=== PATIENT | female | born 1935 | race African-American/Black ===

== ENCOUNTER 2016-06-15 14:37 | Inpatient (IN) | payer MEDICARE, OTHER ==
--- NOTE | ~2016-06-15 | CN ---
Consultation Report [facility] [address] [place]. [address] NAME: MICHAEL SHANKAR : 35 STATUS : ADM IN PAT#: [id number] AGE: 80 ADM/REG DATE : 06/16/16 MR#: [id number] REPORT SERV DATE: 06/16/16 DICTATED BY: DATE: REPORT STATUS : Draft TRANSCRIBED BY: MODL DATE: 06/16/16 NEUROLOGY CONSULTATION DATE OF CONSULTATION: 06/16/2016 REASON FOR CONSULT: Hallucination, possible dementia. HISTORY OF PRESENT ILLNESS: This is an 80-year-old female who presented to [facility] on 06/15/2016, secondary to apparently a fairly chronic history of memory difficulties with the patient as being progressively forgetful, repetition of language as well as losing items. The patient's car briceno has been taken away from her secondary to patient gets lost while driving. In addition, patient is also unable to keep up with bills, has difficulties to remember taking medication. Patient's son has taken over management of her financial state as well as medication for her. The patient's symptom has been progressive and appeared to be long-standing. The patient in addition was also noted to have some hallucination as well as delusional thought with the patient accusing her son of taking her money. The patient is unable to really cook herself, but is able to dress herself and is able to ambulate. REVIEW OF SYSTEMS: Otherwise, negative with the patient currently denies any focal deficits and denies any dysarthria, diplopia. Denies any focal weakness or numbness prior to the hospitalization. MEDICATIONS: The patient recently received B12 shots, but otherwise, was not started on any dementia medications. ALLERGIES: THE PATIENT WAS NOTED TO HAVE NO KNOWN DRUG ALLERGIES. PAST MEDICAL HISTORY: The patient's past medical history is significant for hypertension, rheumatoid arthritis, for which the patient is on methotrexate as well as a low-dose prednisone. The patient also has had a recent diagnosis of DVT five to six months ago, currently on Eliquis. SOCIAL HISTORY: No current tobacco, alcohol, or recreational drug usage. FAMILY HISTORY: Significant for stroke, cataracts, and cancer. HOME MEDICATIONS: Consist of Eliquis, Refresh, Coreg, [place], Cozaar, methotrexate, prednisone, Accupril, and simvastatin. PHYSICAL EXAMINATION: VITAL SIGNS: At the time of evaluation, patient was noted to have overnight vital signs with a T-max of 99.0, heart rate of 55-95, respiration of 16-18, and blood pressure of 145- 177/81-94. Consultation Report [facility] [id number] [place]. [address] NAME: MICHAEL SHANKAR : 35 STATUS : ADM IN PAT#: [id number] AGE: 80 ADM/REG DATE : 06/16/16 MR#: [id number] REPORT SERV DATE: 06/16/16 DICTATED BY: DATE: REPORT STATUS : Draft TRANSCRIBED BY: MODL DATE: 06/16/16 GENERAL: The patient is well developed, well nourished, in no acute distress. CARDIOVASCULAR: Regular rate and rhythm. No carotid bruits were otherwise auscultated. PULMONARY: Clear to auscultation bilaterally. NEUROLOGICAL: Generally, patient is alert and oriented to person, place, month, but not to year. Mild psychomotor retardation was noted, but otherwise no aphasia. No dysarthria was noted at the time of evaluation. The patient is able to register 3/3 items, but is able to recall 0/3 items. The patient has some difficulties recalling given the task of remembering 3 items. At the time of evaluation, patient is able to follow simple and two-step commands, also having difficulty keeping track of complex commands at the time of evaluation. Decreased attention span at the time of evaluation. Cranial nerves II through XII, pupils equal, round, and reactive to light. Extraocular eye movement was noted to be intact with intact blink to threat response. Symmetrical facial expression and sensation. Midline tongue. Normal palatal movement. Mild decreased hearing. At the time of evaluation, the patient demonstrated 5/5 bilateral upper and lower extremity strength. Mild muscle atrophy. No significant tremor was otherwise noted at the time of evaluation. Normal [id number] examination without ataxia. Reports symmetric sensation bilaterally. Deep tendon reflexes 2+ throughout. Downgoing toes and bilateral plantar reflexes. The patient does demonstrate some mild unsteadiness with ambulation as well as posture instability at the time of evaluation. LABORATORY STUDY: Demonstrated white blood cell count of 9.9, hemoglobin of 15.2, hematocrit of 45.3, and platelet count of 186. Chemistry panel: Sodium 143, potassium 3.9, chloride 108, bicarb is 30, BUN of 32, creatinine of 0.95. Glucose of 76, calcium of 10.2. Serum cholesterol 247, HDL of 78, LDL of 148 and triglyceride of 106. Urine drug screen otherwise demonstrated positive opiates and urinalysis demonstrated trace leukocyte esterase, negative nitrites. CT scan of her brain was reviewed. Left subcortical hypoattenuation was seen, concern for possible subacute versus chronic stroke. Hemoglobin A1c is currently pending. IMPRESSION: Possible dementia with the symptom appeared to be chronic and progressive. The patient was noted to have memory difficulties as well as reports of getting lost, resulting in not being able to drive. The patient in addition was also noted to have baseline hallucination as well as delusional thoughts. Concern for possible dementia, Lewy-body dementia versus Alzheimer dementia; however, given patient's history of rheumatoid arthritis, as well as history of immunomodulating therapy, we will also consider possible lumbar puncture. Meanwhile, we will obtain MRI of the brain without contrast for evaluation, EEG, and laboratory study. We will start the patient on trial of Aricept 5 mg p.o. at bedtime. Pending patient's clinical response, may also consider possible low-dose Seroquel. RECOMMENDATIONS: 1. MRI of the brain without contrast. 2. EEG. 3. Ammonia, vitamin B12, folate, thiamine, RPR, HIV, TSH free T4, procalcitonin level. Consultation Report [address] [address] NAME: MICHAEL SHANKAR : 35 STATUS : ADM IN [facility]#: [id number] AGE: 80 ADM/REG DATE : 06/16/16 MR#: [id number] REPORT SERV DATE: 06/16/16 DICTATED BY: DATE: REPORT STATUS : Draft TRANSCRIBED BY: MODL DATE: 06/16/16 4. May consider lumbar puncture. 5. Aricept 5 mg p.o. at bedtime. 6. May consider Seroquel pending clinical response which is Aricept. [facility]/MODL Eris Pennington MD / [id number] CC: Manpreet Buenrostro Jr, MD Lawrence Swan, M.D.
--- NOTE | ~2016-06-15 | EEG ---
Electroencephalogram [facility] [address] [place]. [address] NAME: MICHAEL SHANKAR : 35 STATUS : ADM IN PAT#: [id number] AGE: 80 ADM/REG DATE : 06/16/16 MR#: [id number] REPORT SERV DATE: 06/16/16 DICTATED BY: DATE: REPORT STATUS : Draft TRANSCRIBED BY: MODL DATE: 06/16/16 NEUROLOGY EEG REPORT CLINICAL INDICATIONS: Encephalopathy, confusion, dementia. DESCRIPTION: This EEG was performed using 10/20 electrode placement system. During the EEG study, symmetric background activity was noted with predominant occipital rhythm of roughly 9 hertz. Photic stimulation was performed with a driving response. Hyperventilation was not performed secondary to the patient's underlying medical conditions. During the EEG study, the patient achieved drowsy state as well as a stage I and II sleep with appropriate sleep spindles. No focal abnormalities, seizure activity, or seizure discharge was otherwise noted. No electrographic seizure was observed. INTERPRETATION: This EEG study obtained during awake, drowsy as well as stage I and II sleep may be considered within normal limits. No focal abnormalities, seizure activity with seizure discharge were otherwise noted. Clinical correlation is recommended. [facility]/MODL Eris Pennington MD / [id number] CC: Manpreet Buenrostro Jr, MD Lawrence Swan, M.D.
--- NOTE | ~2016-06-15 | HP ---
History And Physical [facility] [id number] [place]. [address] NAME: MICHAEL SHANKAR : 35 STATUS : ADM Esdras PAT#: [id number] AGE: 80 ADM/REG DATE : 06/15/16 MR#: [id number] REPORT SERV DATE: 06/15/16 DICTATED BY: ALESIA LUNDBERG DATE: 06/15/16 REPORT STATUS : Draft TRANSCRIBED BY: MODL DATE: 06/15/16 DATE OF ADMISSION: 06/15/2016 IDENTIFYING DATA: An 80-year-old female, whose PCP is Dr. Yossi Bishop; dining car server, Dr. Hatch; senior engineering team leader, Dr. Tay. CHIEF COMPLAINT: Hallucinations and swollen feet. HISTORY OF PRESENT ILLNESS: This history of present illness is obtained by talking to the patient and her son, Emanuel, at the bedside as well as with the ER provider and reviewing [employer] and [employer]. The patient's son provides most of the history. The patient is pleasant, but has very poor memory for recent and even remote events. The patient has had leg edema, but the son states he used that as somewhat of a reason to convince his mom to come to the hospital. He describes more than six months of progressive forgetfulness, repetition of comments, and losing items. He finally took her car keys away because she would get lost. He had to take over doing the bills because she can no longer keep up with them. He had to take over administration of her medicines because she would either miss them or take more than she should. It has been steadily getting worse. She lives alone. She is no longer able to really cook for herself. She can dress and bathe herself and goes to and from the bathroom. She started calling her son by her 's name. She accuses the son of taking money. She calls him on the phone and tells him that there are people outside cutting the wires to her house, but he has seen no sign of this. She talks about seeing her purse being out on the porch, but the son does not find it there. He has gone to the PCP as of Monday of this week, they gave her some B12 shots and nothing else particularly. The son mentions that the PCP has discussed dementia, but no therapy has been initiated and we do not know the extent of the outpatient workup. REVIEW OF SYSTEMS: On review of systems, she has some low back pain. She has some urinary incontinence. She has lost about 15 pounds in the last three months. She and son deny any recent fever, sore throat, cough, nasal congestion, chest pain, shortness of breath, abdominal pain, nausea, vomiting, diarrhea, rectal bleeding, melena, dysuria, urinary hesitancy, tick bites, or headaches. ALLERGIES: NO KNOWN DRUG ALLERGIES. PAST MEDICAL HISTORY: No history of diabetes, asthma, COPD, myocardial infarction, stroke, seizure, peptic ulcer or biliary tract disease, liver disease, kidney disease, thyroid disease, or cancer. The ER note mentions something about congestive heart failure, but the son says he has never History And Physical [address] [place]. [address] NAME: MICHAEL SHANKAR : 35 STATUS : ADM Esdras PAT#: [id number] AGE: 80 ADM/REG DATE : 06/15/16 MR#: [id number] REPORT SERV DATE: 06/15/16 DICTATED BY: ALESIA LUNDBERG DATE: 06/15/16 REPORT STATUS : Draft TRANSCRIBED BY: BELL DATE: 06/15/16 heard that. She has hypertension. She has rheumatoid arthritis. She had a DVT in one of her legs, he is not sure which one. It was diagnosed at [facility] about five or six months ago. It was not around the time of any surgery or trauma, and as far as the son knows, no particular triggering cause was found. HOME MEDICATIONS: Eliquis 2.5 mg b.i.d.; Refresh one drop both eyes twice a day; Coreg 25 mg b.i.d.; [place] 5/325 t.i.d. p.r.n. pain; Cozaar 100 mg every morning; methotrexate 15 mg once a week, but there is some note about holding it pending labs; prednisone 5 mg every morning; Accupril 20 mg b.i.d.; and Zocor 20 mg daily. PAST SURGICAL HISTORY: Son recalls a bilateral total knee arthroplasty and cataract surgery on at least one eye and possible hysterectomy. The patient has no real recall except she thinks she may have had the hysterectomy. SOCIAL HISTORY: No tobacco or alcohol intake history. She walks with a cane. She lives alone. Son checks on her as often as he can. He administers her medicines, try to help provide her meals. FAMILY HISTORY: Mother reportedly had a possible stroke and cataracts. Her father was killed very young. One sister had cancer, possibly a breast cancer. DIAGNOSTIC DATA: PA and lateral chest x-ray reveals some atelectasis in the left lung base, clear otherwise per my interpretation. CT scan of the brain without contrast read by Radiology tonight as showing chronic or less likely subacute infarct, left frontal periventricular white matter into the lentiform nucleus, some mild diffuse cortical atrophy, mild deep chronic white matter changes. No other abnormalities noted. Sodium 143, potassium 3.9, chloride 108, CO2 is 30, BUN 32, creatinine 0.95, glucose 76, and calcium 10.2. Liver enzymes, otherwise, normal. Troponin less than 0.02. Acetaminophen less than 2. Salicylate 1.7. Blood alcohol level less than 10. B-natriuretic peptide 161.8. White count 10.4, hemoglobin 16.4, and platelets 200,000. Pro-time is 14.9, INR 1.2, and PTT is 24.1. Urinalysis: Hazy, trace leukocyte esterase, 26 red cells, 6 white blood cells, and occasional bacteria. PHYSICAL EXAMINATION: VITAL SIGNS: Temp is 98, pulse 70, respirations 18, blood pressure 202/112 initially, O2 saturation 97%. GENERAL: A well-developed, older, thin female, who is in no acute distress, feeding herself a sandwich on the ER gurney. HEENT: Head is atraumatic. Pupils are equal, round, and reactive to light. Extraocular motions are intact. No scleral icterus noted. Ear canals and TMs unremarkable. Hearing normal and intact bilaterally. No inflammatory changes noted in the external ears. Nose, noninflamed externally. Septum midline. Nares patent. Mouth, moist. Good gag. No redness of the throat, gums, or lips. NECK: Supple. No lymph node or thyroid enlargement. The carotids have good pulses. No bruits. LUNGS: Clear. Good air flow. No wheezes. No rhonchi. History And Physical [address] [place]. [address] NAME: MICHAEL SHANKAR: 35 STATUS : ADM Esdras PAT#: [id number] AGE: 80 ADM/REG DATE : 06/15/16 MR#: [id number] REPORT SERV DATE: 06/15/16 DICTATED BY: ALESIA LUNDBERG DATE: 06/15/16 REPORT STATUS : Draft TRANSCRIBED BY: MODL DATE: 06/15/16 HEART: Regular rate and rhythm with a grade 1 harsh systolic ejection murmur heard best at the left second intercostal space. No gallop, click, or rub. ABDOMEN: Bowel sounds are positive. Soft, flat, nondistended, and nontender. No masses. No organomegaly. No bruits noted. EXTREMITIES: Warm and good pulses. No clubbing. No cyanosis. No edema. No actively inflamed skin or joints at this time. NEUROLOGIC: She is alert. She is oriented to person. She does not recall the circumstances of today or recent days. Her motor strength is 3/5 in all four extremities. No Babinski. No clonus noted. ASSESSMENT: 1. Hypertensive urgency at 202/112. 2. Possible recent semi-acute left frontal stroke, nonhemorrhagic. 3. Progressive memory and cognitive loss consistent with dementia. 4. High hemoglobin that could be lab error or volume depletion or hypoxia related. 5. History of chronic hypertension. 6. History of rheumatoid arthritis. 7. History of deep venous thrombosis in one leg, approximately five to six months ago at [facility]. PLAN: 1. Observation status on telemetry. 2. Check MRI of the brain. 3. Depending on the MRI that will help skid adzer how aggressive we will be with blood pressure treatment. 4. We will consult Neurology. 5. We will check an EKG and an echocardiogram and we will request records from [facility] to see the details of the previous DVT workup. We will also check HIV and ammonia level. Probably not too useful to check B12 because this week her doctor reportedly gave her a shot of it. We also check a TSH. [facility]/MODL Alesia Lundberg M.D. / [id number] CC: Manpreet Buenrostro Jr, MD Lawrence Swan, M.D. Andrea Hatch M.D. Valerio Tay M.D.
--- NOTE | ~2016-06-15 | DS ---
Discharge Summary [facility] [address] [place]. [address] NAME: MICHAEL SHANKAR : 35 STATUS : ADM IN PAT#: [id number] AGE: 80 ADM/REG DATE : 06/16/16 MR#: [id number] REPORT SERV DATE: 06/21/16 DICTATED BY: TIM DE SANTIAGO DATE: 06/19/16 REPORT STATUS : Draft TRANSCRIBED BY: MODL DATE: 06/19/16 ADMISSION DATE: 06/15/2016 DISCHARGE DATE: 06/19/2016 HOSPITAL COURSE: An 80-year-old female, sees Dr. Hatch as a her duct layer and Dr. Grover as her label press operator. PCP, Dr. Bishop. The patient has known history of hypertension; rheumatoid arthritis, is on methotrexate as an outpatient; DVT apparently 3 or so months ago at [facility], still on the Eliquis. Known history of hyperlipidemia, chronic pain, hypertension as stated, and chronic immunosuppressive medication, methotrexate and prednisone 5 mg a day. The patient came in on 06/15/2016 with "swollen feet" and with hallucinations. She is a poor historian, has had progressive forgetfulness the last six months, repetition of comments, losing items, finally her son and only son took away her car keys out of safety. The patient is upset with the son as a result. The son had to become more involved in her care taking over administration of her medications. The patient started calling her son by her 's name, accuses the son of taking money, the patient has been calling the son and telling him that there are people outside her house cutting the wires to her house despite any objective evidence of that veracity. Noted hypertensive urgency in which she came in. The patient as a result of the confabulations had an MRI which had shown chronic ischemic findings, no acute infarct or other findings on noncontrast MRI, punctate hypodensities scattered on gradient images that cannot be related to amyloid angiopathy, 50% left distal ICA stenosis proximal to the horizontal portion of short-segment signal dropout, bilateral M1 distally in trifurcation regions, they are shown to be patent. Negative MRA. Mild fusiform dilation, left P1 segment. The neck MRA had I would say 50% of distal ICA stenosis, was seen by Neurology for which possible dementia symptoms appear to be chronic progressive, concern of possible dementia like Lewy body versus Alzheimer's. However, given the patient's history of rheumatoid arthritis as well as the immunocompromising medication, consider possible lumbar puncture to rule out any etiology such as cryptococcus. As a result, the patient had C3-C4 that were low 70 and 12.1. HIV negative. RPR negative. CRP less than 2.9. She was on Eliquis for this DVT, and the patient and family were under the understanding that they were going to be discharged at one time. Unfortunately, Medicare has to justify [facility] discharge with 3 midnights and Eliquis was held for safety to reduce the risk of bleeding with LP. Was to get a lumbar puncture yesterday but Interventional Radiology did not feel comfortable doing so with recent cessation of Eliquis, and today on Monday, Interventional Radiology would want to wait till Monday to do the lumbar puncture. As a result, the family is not convinced as that would have a potential debilitating cryptococcal meningitis etiology for her in the clinical presentation. As a result, they decline the lumbar puncture and would rather just be discharged as soon as possible today. Have spoken to the patient and family about risks and benefits of this decision, they are agreeable. Discharge Summary [address] [address] NAME: MICHAEL SHANKAR : 35 STATUS : ADM IN [facility]#: [id number] AGE: 80 ADM/REG DATE : 06/16/16 MR#: [id number] REPORT SERV DATE: 06/21/16 DICTATED BY: TIM DE SANTIAGO DATE: 06/19/16 REPORT STATUS : Draft TRANSCRIBED BY: MODYazmin DATE: 06/19/16 The patient and family have their own cognizance and want to be discharged. The patient is A and O times 3/4, apparently her new baseline. Blood cultures, no growth to date. She had an EEG here as well. There is no focal abnormality, no epileptic activity. DISCHARGE MEDICATIONS: Norvasc 10 p.o. daily, Eliquis 2.5 p.o. b.i.d., aspirin 81 p.o. daily, Lipitor 80 p.o. daily, carvedilol 25 p.o. b.i.d., donepezil 5 p.o. at bedtime, losartan 100 p.o. daily, prednisone 5 p.o. q.a.m., as well as methotrexate 2.5 p.o. every 7 days, as well as Lortab p.r.n. and artificial Tears. I would consider restarting her on her Accupril 20 p.o. daily rather than twice a day. Defer to her PCP regarding optimization. Discharge facility today via ambulance. Follow up with Neurology in 4 to 6 weeks for dementia, consider possible LP at that time if the patient and family feel inclined to do so. Follow up with PCP in two weeks. She will need to have her Eliquis held for 48 hours likely prior to doing the LP as well as her aspirin possibly as well to reduce her risk of any hemorrhage. All questions were answered, it took well over 30 minutes to do. Reference [employer] and [employer]. [facility]/MODL Tim De Santiago DO / [id number] CC: DO Yossi Umana M.D.
[2016-06-15 12:43] LABS: BASOPHILS 0.1 %; BASOPHILS ABSOLUTE 0.01 10/3/uL (0.0-0.16); EOSINOPHILS 0.1 %; EOSINOPHILS ABSOLUTE 0.01 10/3/uL (0.0-0.53); ER CBC TAT 0 Hrs 05 Mins; HEMATOCRIT 49.5 % (36.0-48.0); HEMOGLOBIN 16.4 g/dL (12.0-16.0); IMMATURE GRANULOCYTES 0.6 %; IMMATURE GRANULOCYTES ABSOLUTE 0.06 10/3/uL (0.0-0.11); LYMPHOCYTES 9.2 %; LYMPHOCYTES ABSOLUTE 0.95 10/3/uL (0.67-4.30); MEAN CORPUSCULAR VOLUME 94.1 fL (80-100); MEAN PLATELET VOLUME 9.9 fL (9.2-13.0); MONOCYTES 11.7 %; MONOCYTES ABSOLUTE 1.21 10/3/uL (0.21-1.20); NEUTROPHILS 78.3 %; NEUTROPHILS ABSOLUTE 8.12 10/3/uL (2.02-8.40); RBC DISTRIBUTION WIDTH 13.7 % (12.0-16.0); RED CELL COUNT 5.26 10/6/uL (4.0-5.6); WHITE BLOOD CELLS 10.4 10/3/uL (4.5-10.5)
[2016-06-15 12:44] LABS: MANUAL DIFF NO %; MEAN CORPUS HGB CONC 33.1 g/dL (32.0-36.0); MEAN CORPUSCULAR HEMOGLOB 31.2 pg (26.0-34.0); PLATELET COUNT 200 10/3/uL (150-400)
[2016-06-15 13:00] LABS: A/G RATIO 1.2 (0.7-1.9); ALBUMIN 3.6 G/DL (3.5-5.0); ALKALINE PHOSPHATASE 68 U/L (45-117); BUN (BLOOD UREA NITROGEN) 32 MG/DL (6-23); CALCIUM, SERUM 10.2 MG/DL (8.5-10.4); CHLORIDE, SERUM 108 MMOL/L (96-112); CO2 (CARBON DIOXIDE) 30 MMOL/L (24-34); CREATININE 0.95 MG/DL (0.55-1.02); GFR AFRICAN AMERICAN 66 ML/MIN (>=60); GFR NON AFRICAN AMERICAN 57 ML/MIN (>=60); GLOBULIN 3.1 G/DL (2.5-4.1); GLUCOSE, SERUM 76 MG/DL (60-99); POTASSIUM, SERUM 3.9 MMOL/L (3.5-5.3); SGOT(AST) 24 U/L (5-40); SGPT(ALT) 26 U/L (5-65); SODIUM, SERUM 143 MMOL/L (135-148); TOTAL BILIRUBIN 1.3 MG/DL (0-1.2); TOTAL PROTEIN 6.7 G/DL (6.0-8.5); TROPONIN I <0.02 NG/ML (<0.05)
[2016-06-15 13:52] LABS: ASCORBIC ACID (UR NOT ORDER) NEG (NEG); BILIRUBIN, URINE NEGATIVE (NEG); KETONE, URINE NEGATIVE (NEG); LEUKOCYTE ESTERASE(NOT OR TRACE (NEG); NITRITE (URINE) NEG (NEG); WBC (NOT ORDERED) (RFLEX) 6 (0-5)
[2016-06-15 13:58] LABS: ACETAMINOPHEN LEVEL (TYLENOL) < 2.0 MCG/ML (10.0-20.0); ALCOHOL < 10 MG/DL (0); SALICYLATE < 1.7 MG/DL (-)
[2016-06-15 14:02] LABS: PARTIAL THROMBO TIME 24.1 SEC (22.5-37.2)
[2016-06-15 14:02] LABS: AMPHETAMINES (NOT ORD) NEG (NEG); BARBITURATES (NOT ORDERED NEG (NEG); BENZODIAZEPINES (NOT ORD) NEG (NEG); CANNABINOIDS (THC) NEG (NEG); COCAINE (NOT ORDERED) NEG (NEG); OPIATES POS (NEG); PHENCYCLIDINE(PCP) NEG (NEG); TRICYCLICS NEG (NEG)
[2016-06-15 14:03] LABS: INTERNATIONAL NORMAL RATI 1.2 UNITS (-); PROTIME (NOT ORD) 14.9 SEC (12.0-14.5)
[~2016-06-15 14:37] MED LIST: ACCU20 PO; COREG25 PO; COZAAR100 MG PO; ELIQUIS 2.5 MG2.5 MG PO; MTX2.5 PO; NORCO1 TA1 PO; P5 PO; REFRESH OPH; ZOCOR20 PO
[2016-06-15 23:59] LABS: CALCIUM IONIZED 5.14 MG/DL (3.80-4.80)
[2016-06-16 00:06] LABS: CPK 96 U/L (0-200); TROPONIN I 0.02 NG/ML (<0.05)
[2016-06-16 00:15] LABS: CK-MB 4.9 NG/ML
[2016-06-16 07:16] LABS: BASOPHILS 0.1 %; BASOPHILS ABSOLUTE 0.01 10/3/uL (0.0-0.16); EOSINOPHILS 0.2 %; EOSINOPHILS ABSOLUTE 0.02 10/3/uL (0.0-0.53); HEMATOCRIT 45.3 % (36.0-48.0); HEMOGLOBIN 15.2 g/dL (12.0-16.0); IMMATURE GRANULOCYTES 0.4 %; IMMATURE GRANULOCYTES ABSOLUTE 0.04 10/3/uL (0.0-0.11); LYMPHOCYTES 14.9 %; LYMPHOCYTES ABSOLUTE 1.47 10/3/uL (0.67-4.30); MEAN CORPUS HGB CONC 33.6 g/dL (32.0-36.0); MEAN CORPUSCULAR HEMOGLOB 30.6 pg (26.0-34.0); MEAN PLATELET VOLUME 9.3 fL (9.2-13.0); MONOCYTES ABSOLUTE 1.28 10/3/uL (0.21-1.20); NEUTROPHILS 71.4 %; NEUTROPHILS ABSOLUTE 7.05 10/3/uL (2.02-8.40); PLATELET COUNT 186 10/3/uL (150-400); RED CELL COUNT 4.97 10/6/uL (4.0-5.6); WHITE BLOOD CELLS 9.9 10/3/uL (4.5-10.5)
[2016-06-16 07:17] LABS: MANUAL DIFF NO %; MEAN CORPUSCULAR VOLUME 91.1 fL (80-100)
[2016-06-16 07:38] LABS: CHOL/HDL RATIO(NOT ORDER) 3.2 (0-5); CHOLESTEROL 247 MG/DL (< 200); CPK 78 U/L (0-200); HDL CHOLESTEROL 78 MG/DL (> 49); LDL CHOLESTEROL 148 MG/DL (< 130); NON-HDL CHOLESTEROL 169 MG/DL (< 160); TRIGLYCERIDE 106 MG/DL (< 150); TROPONIN I 0.07 NG/ML (<0.05)
[2016-06-16 12:53] LABS: FREE T4 1.36 NG/DL (0.76-1.46); ULTRASENSITIVE TSH 0.757 MCIU/ML (0.358-3.740)
[2016-06-16 12:54] LABS: FOLATE 8.2 NG/ML (>5.2)
[2016-06-16 13:36] LABS: PROCALCITONIN <0.05 ng/mL (<0.5)
[2016-06-17 06:27] LABS: BUN (BLOOD UREA NITROGEN) 35 MG/DL (6-23); CHLORIDE, SERUM 112 MMOL/L (96-112); CREATININE 1.01 MG/DL (0.55-1.02); GFR AFRICAN AMERICAN 61 ML/MIN (>=60); GFR NON AFRICAN AMERICAN 53 ML/MIN (>=60); POTASSIUM, SERUM 4.3 MMOL/L (3.5-5.3); SODIUM, SERUM 144 MMOL/L (135-148)
[2016-06-17 06:28] LABS: CALCIUM, SERUM 9.2 MG/DL (8.5-10.4); CO2 (CARBON DIOXIDE) 25 MMOL/L (24-34); GLUCOSE, SERUM 102 MG/DL (60-99)
[2016-06-18 06:13] LABS: HEMATOCRIT 45.8 % (36.0-48.0); HEMOGLOBIN 14.9 g/dL (12.0-16.0); PLATELET COUNT 137 10/3/uL (150-400)
[2016-06-18 06:15] LABS: INTERNATIONAL NORMAL RATI 1.3 UNITS (-); PARTIAL THROMBO TIME 26.1 SEC (22.5-37.2); PROTIME (NOT ORD) 15.7 SEC (12.0-14.5)
[2016-06-19 05:57] LABS: C-REACTIVE PROTEIN < 2.9 MG/L (<8.0); COMPLEMENT C3 70 MG/DL (75-161); COMPLEMENT C4 12.1 MG/DL (16-47)
[2016-06-20 08:08] LABS: ANA TITER <1:40 TITER
[2016-06-20 19:05] LABS: THIAMINE 5.6 nmol/L (()); THIAMINE MONOPHOSPHATE 1.8 nmol/L (())
== END 2016-06-21 19:54 | DRG 304 ==
LOC: ER 14:37 → CDU1 19:57 → CDU2 21:12 → 1SO 06-17 08:23
PROVIDERS: Emergency Medicine; Internal Medicine; Internal Medicine Pulmonary Disease; Psychiatry & Neurology Neurology
DX: I16.0 Hypertensive urgency (principal); G93.40 Encephalopathy, unspecified; I50.9 Heart failure, unspecified; F05 Delirium due to known physiological condition; J98.11 Atelectasis; F03.90 Unspecified dementia, unspecified severity, without behavioral disturbance, psychotic disturbance, mood disturbance, and anxiety; I65.22 Occlusion and stenosis of left carotid artery; M54.5 Low back pain; M06.9 Rheumatoid arthritis, unspecified; G89.29 Other chronic pain; R32 Unspecified urinary incontinence; N18.9 Chronic kidney disease, unspecified; I12.9 Hypertensive chronic kidney disease with stage 1 through stage 4 chronic kidney disease, or unspecified chronic kidney disease; E78.5 Hyperlipidemia, unspecified; Z79.01 Long term (current) use of anticoagulants; Z79.52 Long term (current) use of systemic steroids; Z79.891 Long term (current) use of opiate analgesic; Z79.899 Other long term (current) drug therapy; Z86.718 Personal history of other venous thrombosis and embolism; Z96.653 Presence of artificial knee joint, bilateral
CPT/HCPCS: 70450; 70544; 70548; 70551; 71020; 80048; 80053; 80061; 80305; 80307; 81001; 82140; 82330; 82550; 82553; 82607; 82746; 83036; 83880; 84145; 84425; 84439; 84443; 84484; 85014; 85018; 85025; 85049; 85610; 85652; 85730; 86039; 86140; 86160; 86592; 87040; 87389; 95819; 96374; 97116-GP; 97161-GP; 97165-GO; 99285; A9270-GY; A9577; C8929; G8978-CK-GP; G8979-CI-GP; G8987-CJ-GO; G8988-CI-GO; J0360; Q9957